=== PATIENT | female | born 1945 | race Caucasian/White ===

== ENCOUNTER 2023-02-01 21:09 | Emergency (ER) | payer MEDICARE, OTHER ==
[~2023-02-01] VITALS: Ht 165 cm; Wt 68.0 kg
--- NOTE | 2023-02-01 21:42 | ED Hip Pain/Injury ---
General Chief Complaint: Hip/Pelvic Problems Stated Complaint: LEFT LEG PAIN Nursing Triage Note: PT PRESENTS TO ED WITH C/O LEFT HIP PAIN AFTER TURNING IN HER CHAIR AND HEARING A "POP." PT HAS HAD SCIATICA ISSUES WITH AFFECTED LEG THE LAST 2-3MO BUT HAS BEEN PAIN FREE X 2 WEEKS. PT UNABLE TO BEAR WEIGHT, LIFT LEG OFF BED, DECREASED ROM D/T PAIN. Source: patient Exam Limitations: no limitations History of Present Illness Date Seen by Provider: Feb 01, 2023 Time Seen by Provider: 21:30 Initial Comments Patient is a 77-year-old female who presents to the emergency room with a chief complaint of left hip pain. Patient states she was sitting in a chair, turned to look over her shoulder and felt and heard a pop in her left hip. Had immediate pain and was unable to stand and bear weight. Patient has had issues in recent weeks with low back and bilateral hip pain. She recently completed physical therapy 2 weeks ago and has been basically pain-free. She denies numbness tingling or weakness in her legs. No incontinence. She has not taken anything for pain. Injury occurred approximately an hour prior to arrival. She is visiting from out [facility]. She has not had any imaging of her spine, pelvis or hips. Feels better when completely still. Worse with standing and walking. No recent falls or traumas reported. 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) Severity: severe Location: hip (L) Method of Injury: twisted Modifying Factors: Improves With Immobilization; Worse With Movement Associated Symptoms: denies symptoms Allergies and Home Medications Allergies Coded Allergies: No Known Drug Allergies (Unverified , 02/01/23) Patient Home Medication List Home Medication List Reviewed: Yes Review of Systems Constitutional: see HPI Respiratory: no symptoms reported Cardiovascular: no symptoms reported Gastrointestinal: no symptoms reported Genitourinary: no symptoms reported Musculoskeletal: No back pain; joint pain (Left hip) Skin: no symptoms reported Psychiatric/Neurological: Denies Numbness, Denies Paresthesia, Denies Weakness All Other Systems Reviewed Negative Unless Noted: Yes Past Npvledk-Nwhnaj-Ngfxov Hx Patient Social History Tobacco Use?: No Substance use?: No Alcohol Use?: No Pt feels they are or have been: No Immunizations Up To Date Influenza Vaccine Up-to-Date: Yes; Up-to-Date Physical Exam Vital Signs Vital Signs - First Documented 02/01/23 21:20 Temp 35.8 Pulse 81 Resp 18 B/P (MAP) 159/80 (106) Pulse Ox 97 O2 Delivery Room Air Capillary Refill : Height, Weight, BMI Height: '" Weight: lbs. oz. kg; 24.00 BMI Method: General Appearance: No Apparent Distress, WD/WN HEENT: PERRL/EOMI Neck: Normal Inspection Cardiovascular: Regular Rate, Rhythm Respiratory: Lungs Clear, Normal Breath Sounds, No Accessory Muscle Use, No Respiratory Distress Gastrointestinal: Non Tender, Soft Back: No Vertebral Tenderness Extremity: Normal Capillary Refill, Normal Inspection, No Calf Tenderness, Other (Decreased range of motion left hip secondary to discomfort. Point tender over the left lateral hip/greater trochanter; no lower extremity edema. Distal pulses 2+ dorsalis pedis. No sensory deficits in the left leg. No saddle anesthesia.) Neurologic/Psychiatric: Alert, Oriented x3, No Motor/Sensory Deficits, Normal Mood/Affect, ad setter II-XII Norm as Tested Skin: Normal Color, Warm/Dry Progress/Results/Core Measures Results/Orders My Orders Orders - LIZZY MARIANO MD Ibuprofen Tablet (Motrin Tablet) (02/01/23 21:45) Pelvis With Left Hip 2-3 Views (02/01/23 21:40) Rx-Cyclobenzaprine Tablet (Rx-Flexeril T (02/01/23 23:43) Cyclobenzaprine Tablet (Flexeril Tablet) (02/01/23 23:43) Medications Given in ED Current Medications Medications Dose Ordered Sig/Rosa Route Start Time Stop Time Status Last Admin Dose Admin Ibuprofen 600 mg ONCE ONCE PO 02/01/23 21:45 02/01/23 21:46 DC 02/01/23 22:02 600 MG Vital Signs/I&O 02/01/23 02/01/23 02/01/23 21:20 22:02 23:52 Temp 35.8 35.8 36.5 Pulse 81 78 Resp 18 16 B/P (MAP) 159/80 (106) 134/89 Pulse Ox 97 99 O2 Delivery Room Air Room Air Blood Pressure Mean: 106 Progress Progress Note : Time: 23:44 Progress Note Patient treated with 600 mg of ibuprofen. X-rays of the pelvis and left hip obtained. No obvious fracture per independent interpretation by me. 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 After 600 mg of ibuprofen patient achieved significant improvement in her pain. She was able to stand at the bedside and help herself get dressed. Recommended ancp-mll-skngwtb NSAIDs, alternating heat and ice. Suggested follow-up with her primary care physician when she gets back to [place]. Fall precautions encouraged. Return precautions given. Patient and family members verbalized understanding and agreement with plan of care. All questions are sought and answered. She was provided 5 mg Flexeril for pain relief as well. Diagnostic Imaging Diagonstic Imaging: Xray Plain Films/CT/US/NM/MRI: pelvis, hip (left) Comments . X-rays of the left hip and pelvis obtained. Interpreted by samir fractures/dislocation. Reviewed: Reviewed by Me Departure Impression Primary Impression: Left hip pain Disposition: HOME, SELF-CARE Condition: Improved Departure-Patient Inst. Decision time for Depature: 23:45 Referrals: NO,LOCAL PHYSICIAN (PCP/Family) Primary Care Physician Patient Instructions: Hip Pain Add. Discharge Instructions: You can take byvy-szr-jcygqkr Aleve, 2 tablets twice daily with food as needed for pain. OR ibuprofen 3 tablets which is 600 mg every 6 hours as needed. Always take these medications with food. Flexeril 5 mg every 8 hours as needed for muscle spasm. Pjax-tsh-ssypbzo Voltaren gel is also a good pain reliever. You can find this at any pharmacy. If you have any worsening pain especially with swelling, redness or fever please return to the emergency department for reevaluation. Follow-up with your primary care physician next week. LIZZY MARIANO MD Feb 01, 2023 21:42
[2023-02-01] MEDS ORDERED: IBUPROFEN 600 MG (MOTRIN) TAB PO ONE (21:45)
[2023-02-01] MEDS ORDERED: RX-CYCLOBENZAPRINE 10 MG (FLEXERIL) TAB PPK#3 PO STA (23:43)
[2023-02-01] MEDS ORDERED: CYCLOBENZAPRINE 10 MG (FLEXERIL) TAB PO STA (23:43)
[2023-02-01 23:52] VITALS: BP 134/89
--- NOTE | 2023-02-02 06:50 | Diagnostic Imaging Report ---
INDICATION: Left hip pain. Three views were obtained. FINDINGS: There are degenerative changes in the lumbar spine. There are mild degenerative changes in the left hip. There is no acute fracture or dislocation. Soft tissues are unremarkable. 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 Dictated by: Dictated on workstation # [id number]
== END 2023-02-01 23:53 | disposition home or self-care (01) ==
LOC: ER 21:12
DX: M25.552 Pain in left hip (principal); X50.1XXA Overexertion from prolonged static or awkward postures, initial encounter